=== PATIENT | female | born 1945 | race Two or more races ===

== ENCOUNTER 2016-11-14 07:34 | Outpatient (CLI) | payer MEDICARE, OTHER ==
[~2016-11-14] VITALS: Ht 162.6 cm; Wt 63.5 kg
[2016-11-14] MEDS ORDERED: REGADENOSON 0.4 MG/5 ML DISP.SYRIN IVP ONE (08:30)
[2016-11-14 10:29] LABS: ALANINE AMINOTRANSFERASE 22 U/L (12-78); ALBUMIN 3.9 g/dL (3.4-5.0); ALKALINE PHOSPHATASE 53 U/L (46-116); ASPARTATE AMINOTRANSFERASE 21 U/L (15-37); BILIRUBIN,TOTAL 0.5 mg/dL (0.2-1.0); CALCIUM, SERUM 8.8 mg/dL (8.5-10.1); CARBON DIOXIDE 31 mmol/L (21-32); CHLORIDE 107 mmol/L (98-107); CREATININE 0.8 mg/dL (0.6-1.3); GLUCOSE 107 mg/dL (74-106); POTASSIUM 4.4 mmol/L (3.5-5.1); SODIUM SERUM 143 mmol/L (136-145); TOTAL PROTEIN, SERUM 7.2 g/dL (6.4-8.2); UREA NITROGEN, BLOOD 17 mg/dL (7-18)
[2016-11-14 13:58] LABS: CHOLESTEROL 208 mg/dL (<200)
[2016-11-14 14:24] LABS: HDL CHOLESTEROL 65 mg/dL (40-60); LDL 120 mg/dL (0-99); THYROID STIMULATING HORMONE 1.087 uIU/mL (0.358-3.74); TRIGLYCERIDES 121 mg/dL (30-150)
== END 2016-11-14 23:59 | disposition home or self-care (01) ==
LOC: NM 07:34
PROVIDERS: ATTEND Internal Medicine Interventional Cardiology
DX: R07.9 Chest pain, unspecified (principal); I10 Essential (primary) hypertension; E78.5 Hyperlipidemia, unspecified; E55.9 Vitamin D deficiency, unspecified
CPT/HCPCS: 36415; 71020; 78452; 80053; 80061; 82306; 84439; 84443; A9502; J2785

== ENCOUNTER 2017-04-21 21:45 | Emergency (ER) | payer MEDICARE, OTHER ==
[~2017-04-21] VITALS: Ht 152.4 cm; Wt 65.8 kg
--- NOTE | 2017-04-21 22:07 | NUR ---
PT BIB FRIEND FROM HOME, PT GOT NAIL FRISIAN REMOVER IN HER LEFT EYE 1 HOUR. PT AOX3 RR EVEN AND UNLABORED. NO SOB NOTED. NAD NOTED. NO NVD AT THIS TIME. PT GOWNED AND PLACED ON MONITOR WAITING FOR MD العلي.
[2017-04-21] MEDS ORDERED: FLUORESCEIN SODIUM OPHTH 1 EA STRIP OP STA (22:08)
[2017-04-21] MEDS ORDERED: TETRACAINE HCL/PF 0.5% UD 2 ML BOTTLE ONE (22:11)
[2017-04-21] MEDS ORDERED: FLUORESCEIN SODIUM OPHTH 1 EA STRIP ONE (22:11)
--- NOTE | 2017-04-21 22:13 | NUR ---
PAC PRUSHA AT BEDSIDE FOR EVAL.
--- NOTE | 2017-04-21 22:23 | NUR ---
LEFT EYE FLUSHED VIA HAYS LENS AT THIS TIME. PT TOLERATING. WILL CLOSELY MONITOR.
[2017-04-21] MEDS ORDERED: TETRACAINE HCL 0.5% OPHTALMIC 15 ML BOTTLE OP ONE (22:30)
--- NOTE | 2017-04-21 23:03 | NUR ---
PAC NUSH AT BEDSIDE FOR RE-EVAL OF LEFT EYE
--- NOTE | 2017-04-21 23:28 | NUR ---
Patient discharged to home in stable condition. Written and verbal after care instructions given. Patient verbalizes understanding of instruction.
[2017-04-21 23:31] VITALS: BP 135/70
== END 2017-04-21 23:32 | disposition home or self-care (01) ==
LOC: ER 21:51
DX: H57.12 Ocular pain, left eye (principal); I10 Essential (primary) hypertension; E78.00 Pure hypercholesterolemia, unspecified; E11.9 Type 2 diabetes mellitus without complications; F32.9 Major depressive disorder, single episode, unspecified; K76.0 Fatty (change of) liver, not elsewhere classified; Z90.89 Acquired absence of other organs; Z90.49 Acquired absence of other specified parts of digestive tract
CPT/HCPCS: 99283; A4606; J7030; Z7610

== ENCOUNTER 2023-05-03 13:18 | Emergency (ER) | payer MEDICARE, OTHER ==
[~2023-05-03] VITALS: Ht 167.6 cm; Wt 63.5 kg
[2023-05-03 13:53] VITALS: BP 106/54; TEMP 98.2
[2023-05-03 14:00] VITALS: O2SAT 97
[2023-05-03] MEDS ORDERED: AMOX-430 PO (14:37)
[2023-05-03] MEDS ORDERED: TDAP [DIPH/PERTUSSIS/TET] 0.5 ML VIAL IM ONE (14:38)
[2023-05-03] MEDS: TDAP [DIPH/PERTUSSIS/TET] 0.5 ML VIAL IM ONE (14:43)
== END 2023-05-03 14:44 | disposition home or self-care (01) ==
LOC: ER 13:29
DX: S41.152A Open bite of left upper arm, initial encounter (principal); I10 Essential (primary) hypertension; E78.00 Pure hypercholesterolemia, unspecified; E11.9 Type 2 diabetes mellitus without complications; F32.A Depression, unspecified; Z90.49 Acquired absence of other specified parts of digestive tract; W54.0XXA Bitten by dog, initial encounter; Y93.89 Activity, other specified; Y92.89 Other specified places as the place of occurrence of the external cause; Y99.8 Other external cause status
CPT/HCPCS: 90715

== ENCOUNTER 2024-03-27 13:42 | Emergency (ER) | payer MEDICARE, OTHER ==
[~2024-03-27] VITALS: Ht 157.5 cm; Wt 56.7 kg
[~2024-03-27 13:42] MED LIST: AMOX-430 PO
[2024-03-27] MEDS ORDERED: BENZ-13 PO (15:03)
[2024-03-27 15:09] VITALS: BP 128/62; TEMP 98.8; O2SAT 100
== END 2024-03-27 15:10 | disposition home or self-care (01) ==
LOC: ER 13:57
DX: J06.9 Acute upper respiratory infection, unspecified (principal); R06.02 Shortness of breath; E11.9 Type 2 diabetes mellitus without complications; E78.00 Pure hypercholesterolemia, unspecified; I10 Essential (primary) hypertension; F32.A Depression, unspecified; K21.9 Gastro-esophageal reflux disease without esophagitis; Z87.19 Personal history of other diseases of the digestive system; Z90.49 Acquired absence of other specified parts of digestive tract; Z20.822 Contact with and (suspected) exposure to COVID-19
CPT/HCPCS: 71045-TC

== ENCOUNTER 2024-11-28 16:32 | Emergency (ER) | payer MEDICARE, OTHER ==
[~2024-11-28] VITALS: Ht 157.5 cm; Wt 64.0 kg
[~2024-11-28 16:32] MED LIST changes: +BENZ-13 PO
[2024-11-28 16:51] VITALS: BP 137/64; TEMP 98.2
[2024-11-28] MEDS ORDERED: IBUPROFEN 400 MG TABLET ONE (17:16)
[2024-11-28] MEDS ORDERED: ACETAMINOPHEN ES 500 MG TABLET ONE (17:16)
[2024-11-28] MEDS: ACETAMINOPHEN ES 500 MG TABLET PO ONE (17:20)
[2024-11-28] MEDS: IBUPROFEN 400 MG TABLET PO ONE (17:20)
[2024-11-28] MEDS ORDERED: IBUP-1488 PO (18:29)
[2024-11-28] MEDS ORDERED: ACET-73 PO (18:29)
[2024-11-28] MEDS ORDERED: BENZ-13 PO (18:37)
[2024-11-28 18:56] VITALS: O2SAT 98
== END 2024-11-28 18:57 | disposition home or self-care (01) ==
LOC: ER 16:41
DX: U07.1 COVID-19 (principal); J06.9 Acute upper respiratory infection, unspecified; R05.9 Cough, unspecified; E11.9 Type 2 diabetes mellitus without complications; E78.00 Pure hypercholesterolemia, unspecified; I10 Essential (primary) hypertension; F32.A Depression, unspecified; Z87.19 Personal history of other diseases of the digestive system; Z90.49 Acquired absence of other specified parts of digestive tract; Z86.79 Personal history of other diseases of the circulatory system
CPT/HCPCS: 71045-TC

== ENCOUNTER 2025-01-08 21:01 | Emergency (ER) | payer MEDICARE, OTHER ==
[~2025-01-08] VITALS: Ht 154.9 cm; Wt 59.0 kg
[~2025-01-08 21:01] MED LIST changes: +ACET-73 PO; +IBUP-1488 PO
[2025-01-09 00:38] VITALS: BP 150/69; TEMP 97.7; O2SAT 95
== END 2025-01-09 00:39 | disposition home or self-care (01) ==
LOC: ER 21:22
DX: S62.142A Displaced fracture of body of hamate [unciform] bone, left wrist, initial encounter for closed fracture (principal); S20.219A Contusion of unspecified front wall of thorax, initial encounter; M19.90 Unspecified osteoarthritis, unspecified site; I11.9 Hypertensive heart disease without heart failure; E11.9 Type 2 diabetes mellitus without complications; E78.00 Pure hypercholesterolemia, unspecified; K76.0 Fatty (change of) liver, not elsewhere classified; Z87.19 Personal history of other diseases of the digestive system; Z90.49 Acquired absence of other specified parts of digestive tract; W01.198A Fall on same level from slipping, tripping and stumbling with subsequent striking against other object, initial encounter; Y93.89 Activity, other specified; Y92.89 Other specified places as the place of occurrence of the external cause; Y99.9 Unspecified external cause status
CPT/HCPCS: 71045-TC; 73110; 73130-TC